=== PATIENT | male | born 1950 | race Caucasian/White ===

== ENCOUNTER 2018-10-15 00:45 | Emergency (ER) | payer MEDICARE, OTHER, MEDICAID ==
[2018-10-15] MEDS ORDERED: Sodium Chloride 0.9% 10 ML Syringe FLUSH PRN (01:02)
[2018-10-15] MEDS ORDERED: Morphine 2 MG/ML Syringe IVPUSH ONE (01:23)
--- NOTE | 2018-10-15 01:47 | EDM.PDOC ---
ED HPI GENERAL MEDICAL PROBLEM - General Chief Complaint: General Stated Complaint: Fever, LLE Pain Time Seen by Provider: 10/15/18 01:00 Source of Information: Reports: Patient History Limitations: Reports: No Limitations - History of Present Illness INITIAL COMMENTS - FREE TEXT/NARRATIVE: Patient is a 67-year-old gentleman who presents to the ER via ambulance from the [facility] at this time patient is seen with severe pain in left extremity also with long-standing history of cyanosis patient has had multiple taps secondary to ascites he appears alert and oriented to time and place states that he fell a few days ago and since has been hurting pain is about 8 out of 10 at its worse he currently has a low temperature 99.6 Onset: Today Duration: Hour(s):, Getting Worse Location: Reports: Generalized Quality: Reports: Ache, Throbbing Severity: Severe Improves with: Reports: None Worsens with: Reports: Movement Context: Reports: Other (Liver cirrhosis and osteomyelofibrosis) Left Lower Leg Pain Score (Numeric/FACES): 9 abdominal pain Pain Score (Numeric/FACES): 9 - Related Data Allergies Allergy/AdvReac Type Severity Reaction Status Date / Time No Known Drug Allergies Allergy Cannot Verified 09/24/18 11:46 Remember Home Meds: Home Meds Pantoprazole Sodium 40 mg PO ACBREAKFAST 02/14/15 [History] Albuterol [Proair HFA] 2 puff INH Q4H PRN 02/15/15 [History] Albuterol/Ipratropium [DuoNeb 3.0-0.5 MG/3 ML] 3 ml NEB Q4H PRN 08/25/16 [ History] Hydroxyurea [Hydrea] 500 mg PO DAILY 10/25/17 [History] Fluticasone/Salmeterol [Advair 250-50 Diskus] 1 puff INH BID@,20 03/09/18 [ History] Allopurinol [Zyloprim] 300 mg PO DAILY 03/10/18 [History] Ibuprofen [Advil] 200 mg PO DAILY 05/21/18 [History] LORazepam 0.5 mg PO BID@08,20 05/21/18 [History] Furosemide [Lasix] 60 mg PO BID@08,14 08/11/18 [History] Hydrocortisone [Preparation H] 1 applic RECTAL TID PRN 08/11/18 [History] Lactulose 45 ml PO QID@08,12,16,08/11/18 [History] Melatonin 3 mg PO BEDTIME 08/11/18 [History] rOPINIRole HCl [Requip] 0.25 mg PO DAILY@199908/11/18 [History] Menthol/Camphor [Sarna Anti-Itch Lotion] 1 applic TOP BID@,09/15/18 [ History] Albuterol/Ipratropium [DuoNeb 3.0-0.5 MG/3 ML] 3 ml NEB BID@,10/15/18 [ History] Aloe Vera/Sodium Chloride [[place] Saline Nasal Gel] 1 applic NASBOTH ASDIRECTED PRN 10/15/18 [History] Dextran 70/Hypromellose [Artificial Tears] 1 drop EYEBOTH BID@,10/15/18 [ History] Folic Acid 1 mg PO DAILY 10/15/18 [History] Ibuprofen 200 mg PO DAILY PRN 10/15/18 [History] Methyl Salicylate/Menthol [Muscle Rub] 1 applic TOP QID PRN 10/15/18 [History] Ruxolitinib Phosphate [Jakafi] 10 mg PO BID@,10/15/18 [History] Spironolactone [Aldactone] 25 mg PO DAILY 10/15/18 [History] traMADol [Ultram] 50 mg PO BID PRN 10/15/18 [History] Past Medical History HEENT History: Reports: Cataract, Impaired Vision Cardiovascular History: Reports: Hypertension, SOB on Exertion Other Cardiovascular History: THROMBOCYTOPENIA. SYSTOLIC MURMUR Respiratory History: Reports: COPD, SOB, Other (See Below) Other Respiratory History: emphysema Gastrointestinal History: Reports: Cirrhosis, GI Bleed, Other (See Below) Other Gastrointestinal History: ascites, stomach ulcer- had a endoscopy in 2014 and there was no evidence of bleeding at that time Genitourinary History: Reports: Other (See Below) Other Genitourinary History: HISTORY OF SCROTAL MASS Musculoskeletal History: Reports: Arthritis Neurological History: Reports: Headaches, Chronic, Other (See Below) Other Neuro History: etoh use Psychiatric History: Reports: Addiction, Other (See Below) Other Psychiatric History: alcohol and nicotine Endocrine/Metabolic History: Reports: Obesity/BMI 30+ Hematologic History: Reports: Anemia, Other (See Below) Other Hematologic History: thrombocytopenia Dermatologic History: Reports: Other (See Below) Other Dermatologic History: multiple scratched open area on chest, back and liam arms - Infectious Disease History Infectious Disease History: Reports: Chicken Pox, Measles, Other (See Below) Other Infectious Disease History: non infectious hepatitis - Past Surgical History HEENT Surgical History: Reports: Cataract Surgery, Naso-Sinus Surgery GI Surgical History: Reports: Hernia, Abdominal, Hernia, Inguinal, Hernia Repair /Other Endocrine Surgical History: Reports: None Social & Family History - Family History Family Medical History: Noncontributory Cardiac: Reports: Heart Failure - Caffeine Use Caffeine Use: Reports: Coffee Other Caffeine Use: coke and powerade - Living Situation & Occupation Living situation: Reports: Single Occupation: Retired ED ROS GENERAL - Review of Systems Review Of Systems: See Below Constitutional: Reports: Fever, Weakness HEENT: Reports: No Symptoms Respiratory: Reports: Shortness of Breath Cardiovascular: Reports: Blood Pressure Problem, Edema Endocrine: Reports: No Symptoms GI/Abdominal: Reports: Abdominal Pain, Distension (Secondary to ascites) : Reports: No Symptoms Musculoskeletal: Reports: Leg Pain Skin: Reports: Jaundice, Bruising, Erythema Neurological: Reports: Weakness Psychiatric: Reports: No Symptoms Hematologic/Lymphatic: Reports: Other (Leukocytosis) Immunologic: Reports: No Symptoms ED EXAM, GENERAL - Physical Exam Exam: See Below Exam Limited By: Physical Impairment General Appearance: Alert, Moderate Distress (Left leg pain) Ears: Normal External Exam, Normal Canal, Hearing Grossly Normal, Normal TMs Nose: Normal Inspection, Normal Mucosa, No Blood Throat/Mouth: Other (Poor oral hygiene) Head: Atraumatic, Normocephalic Neck: Normal Inspection, Supple, Non-Tender, Full Range of Motion Respiratory/Chest: No Respiratory Distress, Lungs Clear, Decreased Breath Sounds , Prolonged Expiration Cardiovascular: Regular Rate, Rhythm, Systolic Murmur (106 systolic murmur heard best left intercostal space). No: No Edema GI/Abdominal: Distended, Tender, Other (Ascites) (Male) Exam: Deferred Rectal (Males) Exam: Deferred Back Exam: Decreased Range of Motion Extremities: Other (Bilateral lower extremity edema with ecchymosis in the left thigh inner aspect and below the left patella) Course - Vital Signs Last Recorded V/S: Last Vital Signs Temp 99.6 F 10/15/18 00:45 Pulse 95 10/15/18 02:30 Resp 17 10/15/18 02:30 BP 116/60 10/15/18 02:30 Pulse Ox 99 10/15/18 02:30 - Orders/Labs/Meds Orders: Active Orders 24 hr Category Date Time Status EKG Documentation Completion [RC] ASDIRECTED Care 10/15/18 02:47 Active Femur Min 2V Lt [CR] Stat Exams 10/15/18 01:14 Taken Hip Min 2V or 3V Lt [CR] Stat Exams 10/15/18 01:14 Taken CULTURE BLOOD [BC] Stat Lab 10/15/18 01:10 Received CULTURE BLOOD [BC] Stat Lab 10/15/18 01:30 Received Blood Culture x2 Reflex Set [OM.PC] Stat Oth 10/15/18 00:57 Ordered Saline Lock Insert [OM.PC] Stat Oth 10/15/18 01:02 Ordered Labs: Laboratory Tests 10/15/18 10/15/18 10/15/18 Range/Units 01:10 01:10 01:10 WBC 43.6 H* (4.0-10.2) K/uL RBC 2.63 L (4.33-5.41) M/uL Hgb 7.7 L (13.1-16.8) g/dL Hct 24.6 L* (39.0-49.0) % MCV 93.5 (84.0-98.0) fL MCH 29.3 (28.2-33.3) pg MCHC 31.3 L (31.7-36.0) g/dL RDW 18.6 H (11.2-14.1) % Plt Count 356 H D (150-350) K/uL Add Manual Diff Yes Neutrophils % (Manual) 59 Band Neutrophils % 22 Lymphocytes % (Manual) 9 Monocytes % (Manual) 5 Metamyelocytes % 3 Myelocytes % 2 Immature Gran # 2.1800 Absolute Neutrophils 35.3160 Lymphocytes # (Manual) 3.9240 Monocytes # (Manual) 2.1800 PT (9.5-12.0) SEC INR APTT 38.5 H (21.0-31.3) SEC D-Dimer, Quantitative (0-400) ng/mL Sodium 138 (136-145) mmol/L Potassium 4.8 (3.5-5.1) mmol/L Chloride 103 (98-107) mmol/L Carbon Dioxide 23.3 (21.0-32.0) mmol/L BUN 42 H (7-18) mg/dL Creatinine 1.52 H (0.51-1.17) mg/dL Est Cr Clr Drug Dosing 45.87 mL/min Estimated GFR (MDRD) 46 mL/min Glucose 105 (74-106) mg/dL Lactic Acid (0.4-2.0) mmol/L Calcium 7.6 L (8.5-10.1) mg/dL Total Bilirubin 0.5 (0.2-1.0) mg/dL AST 52 H (15-37) U/L ALT 35 (12-78) U/L Alkaline Phosphatase 1039 H (46-116) IU/L Total Protein 5.4 L (6.4-8.2) g/dL Albumin 2.1 L (3.4-5.0) g/dL 10/15/18 10/15/18 10/15/18 Range/Units 01:10 01:10 01:10 WBC (4.0-10.2) K/uL RBC (4.33-5.41) M/uL Hgb (13.1-16.8) g/dL Hct (39.0-49.0) % MCV (84.0-98.0) fL MCH (28.2-33.3) pg MCHC (31.7-36.0) g/dL RDW (11.2-14.1) % Plt Count (150-350) K/uL Add Manual Diff Neutrophils % (Manual) Band Neutrophils % Lymphocytes % (Manual) Monocytes % (Manual) Metamyelocytes % Myelocytes % Immature Gran # Absolute Neutrophils Lymphocytes # (Manual) Monocytes # (Manual) PT 13.7 H (9.5-12.0) SEC INR 1.3 APTT (21.0-31.3) SEC D-Dimer, Quantitative 1270 H (0-400) ng/mL Sodium (136-145) mmol/L Potassium (3.5-5.1) mmol/L Chloride (98-107) mmol/L Carbon Dioxide (21.0-32.0) mmol/L BUN (7-18) mg/dL Creatinine (0.51-1.17) mg/dL Est Cr Clr Drug Dosing mL/min Estimated GFR (MDRD) mL/min Glucose (74-106) mg/dL Lactic Acid 1.0 (0.4-2.0) mmol/L Calcium (8.5-10.1) mg/dL Total Bilirubin (0.2-1.0) mg/dL AST (15-37) U/L ALT (12-78) U/L Alkaline Phosphatase (46-116) IU/L Total Protein (6.4-8.2) g/dL Albumin (3.4-5.0) g/dL Meds: Medications Discontinued Medications Generic Name Dose Route Start Last Admin Trade Name Freq PRN Reason Stop Dose Admin Iopamidol Confirm 10/15/18 02:37 10/15/18 04:00 Isovue-370 (76%) Administered 10/15/18 02:38 Not Given Dose 100 ml .ROUTE .STK-MED ONE Morphine Sulfate 1 mg 10/15/18 01:23 10/15/18 01:26 Morphine IVPUSH 10/15/18 01:24 1 mg ONETIME ONE Administration Sodium Chloride 10 ml 10/15/18 01:02 10/15/18 01:27 Saline Flush FLUSH 10 ml ASDIRECTED PRN Administration Keep Vein Open Departure - Departure Time of Disposition: 03:40 Disposition: DC/Tfer to [facility] 02 Clinical Impression: Osteomyelofibrosis - Discharge Information Referrals: Sheets-Alley Gagnon MD [Primary Care Provider] - Forms: ED Department Discharge - Problem List & Annotations (1) Osteomyelofibrosis SNOMED Code(s): 470829516 Code(s): D47.4 - OSTEOMYELOFIBROSIS Status: Acute Annotation/Comment:: Patient workup to include lower extremity Doppler studies and possible VQ scan for PE secondary elevated d-dimer's will transfer to [place] for workup (2) Ascites SNOMED Code(s): 607935426 Code(s): R18.8 - OTHER ASCITES Status: Chronic Annotation/Comment:: Patient will need abdominal ultrasound with possible needle guided paracenteses (3) Anemia SNOMED Code(s): 741173342 Code(s): D64.9 - ANEMIA, UNSPECIFIED Status: Chronic Annotation/Comment: : 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 leukocytosis Qualifiers: Anemia type: unspecified type Qualified Code(s): D64.9 - Anemia, unspecified (4) COPD (chronic obstructive pulmonary disease) SNOMED Code(s): 65063310 Code(s): J44.9 - CHRONIC OBSTRUCTIVE PULMONARY DISEASE, UNSPECIFIED Status : Chronic Annotation/Comment:: Patient has long history of COPD on oxygen at home appears to be well controlled with current medications - Problem List Review Problem List Initiated/Reviewed/Updated: Yes - My Orders Last 24 Hours: My Active Orders 10/15/18 00:57 Blood Culture x2 Reflex Set [OM.PC] Stat 10/15/18 01:02 Saline Lock Insert [OM.PC] Stat 10/15/18 01:10 CULTURE BLOOD [BC] Stat 10/15/18 01:14 Femur Min 2V Lt [CR] Stat Hip Min 2V or 3V Lt [CR] Stat 10/15/18 01:30 CULTURE BLOOD [BC] Stat 10/15/18 02:47 EKG Documentation Completion [RC] ASDIRECTED - Assessment/Plan Last 24 Hours: My Active Orders 10/15/18 00:57 Blood Culture x2 Reflex Set [OM.PC] Stat 10/15/18 01:02 Saline Lock Insert [OM.PC] Stat 10/15/18 01:10 CULTURE BLOOD [BC] Stat 10/15/18 01:14 Femur Min 2V Lt [CR] Stat Hip Min 2V or 3V Lt [CR] Stat 10/15/18 01:30 CULTURE BLOOD [BC] Stat 10/15/18 02:47 EKG Documentation Completion [RC] ASDIRECTED Plan: Patient will be transferred to [facility]
[2018-10-15 02:31] VITALS: BP 116/60
[2018-10-15] MEDS ORDERED: Iopamidol 755 Mg/ML 100 ML Bottle ONE (02:37)
== END 2018-10-15 03:40 ==
LOC: LL.ED 00:45
DX: D47.4 Osteomyelofibrosis (principal); R18.8 Other ascites; D64.9 Anemia, unspecified; J44.9 Chronic obstructive pulmonary disease, unspecified; I10 Essential (primary) hypertension; Z79.891 Long term (current) use of opiate analgesic; Z79.899 Other long term (current) drug therapy; Z98.890 Other specified postprocedural states
CPT/HCPCS: 36415; 73502; 73552; 80053; 83605; 85025; 85379; 85610; 85730; 87040; 93005; 96374; 99285; J2270

== ENCOUNTER 2018-11-15 21:00 | Emergency (ER) | payer MEDICARE, OTHER, MEDICAID ==
--- NOTE | 2018-11-15 21:50 | EDM.PDOC ---
ED HPI GENERAL MEDICAL PROBLEM - General Chief Complaint: General Stated Complaint: ascites, increased weight Time Seen by Provider: 11/15/18 21:10 Source of Information: Reports: Family History Limitations: Reports: No Limitations - History of Present Illness INITIAL COMMENTS - FREE TEXT/NARRATIVE: Patient is a 67-year-old with history of liver cirrhosis and alcohol abuse was seen in [place] for a peritonealcentesis 3 days ago since that time patient has had increase in abdominal girth increased weight increased difficulty breathing and anasarca of the lower extremities also patient continues draining from the site of procedure. Onset: Gradual Duration: Day(s):, Getting Worse Location: Reports: Chest, Abdomen, Lower Extremity, Left, Lower Extremity, Right Quality: Reports: Ache, Pressure, Sharp Severity: Severe Improves with: Reports: None Worsens with: Reports: Rest Context: Reports: Other (Procedure) Associated Symptoms: Reports: Shortness of Breath, Weakness, Other (Abdominal pain) - Related Data Allergies Allergy/AdvReac Type Severity Reaction Status Date / Time No Known Drug Allergies Allergy Cannot Verified 10/30/18 10:52 Remember Home Meds: Home Meds Pantoprazole Sodium 40 mg PO ACBREAKFAST 02/14/15 [History] Albuterol [Proair HFA] 2 puff INH Q4H PRN 02/15/15 [History] Albuterol/Ipratropium [DuoNeb 3.0-0.5 MG/3 ML] 3 ml NEB Q4H PRN 08/25/16 [ History] Hydroxyurea [Hydrea] 500 mg PO DAILY 10/25/17 [History] Fluticasone/Salmeterol [Advair 250-50 Diskus] 1 puff INH BID@03/09/18 [ History] Allopurinol [Zyloprim] 300 mg PO QAM 03/10/18 [History] LORazepam 0.5 mg PO BID@05/21/18 [History] Furosemide [Lasix] 60 mg PO BID@08/11/18 [History] Hydrocortisone [Preparation H] 1 applic RECTAL TID PRN 08/11/18 [History] Lactulose 30 ml PO BID 08/11/18 [History] rOPINIRole HCl [Requip] 0.25 mg PO DAILY@199908/11/18 [History] Menthol/Camphor [[place] Anti-Itch Lotion] 1 applic TOP BID@,20 09/15/18 [ History] Albuterol/Ipratropium [DuoNeb 3.0-0.5 MG/3 ML] 3 ml NEB BID 10/15/18 [History] Aloe Vera/Sodium Chloride [[place] Saline Nasal Gel] 1 applic NASBOTH ASDIRECTED PRN 10/15/18 [History] Folic Acid 1 mg PO DAILY 10/15/18 [History] Methyl Salicylate/Menthol [Muscle Rub] 1 applic TOP QID PRN 10/15/18 [History] Ruxolitinib Phosphate [Jakafi] 10 mg PO BID@,10/15/18 [History] Spironolactone [Aldactone] 25 mg PO DAILY 10/15/18 [History] Acetaminophen 650 mg PO Q4HR PRN 10/30/18 [History] Ciprofloxacin HCl [Cipro] 500 mg PO QAM 10/30/18 [History] Hydrocortisone [Proctosol-HC] 1 applic RECTAL QID PRN 10/30/18 [History] Indomethacin 25 mg PO BID 10/30/18 [History] Non-Formulary Medication [NF Drug] 1 ea PO TID 10/30/18 [History] Past Medical History HEENT History: Reports: Cataract, Impaired Vision Cardiovascular History: Reports: Hypertension, SOB on Exertion Other Cardiovascular History: THROMBOCYTOPENIA. SYSTOLIC MURMUR Respiratory History: Reports: COPD, SOB, Other (See Below) Other Respiratory History: emphysema Gastrointestinal History: Reports: Cirrhosis, GI Bleed, Other (See Below) Other Gastrointestinal History: ascites, stomach ulcer- had a endoscopy in 2014 and there was no evidence of bleeding at that time Genitourinary History: Reports: Other (See Below) Other Genitourinary History: HISTORY OF SCROTAL MASS Musculoskeletal History: Reports: Arthritis Neurological History: Reports: Headaches, Chronic, Other (See Below) Other Neuro History: etoh use Psychiatric History: Reports: Addiction, Other (See Below) Other Psychiatric History: alcohol and nicotine Endocrine/Metabolic History: Reports: Obesity/BMI 30+ Hematologic History: Reports: Anemia, Other (See Below) Other Hematologic History: thrombocytopenia Dermatologic History: Reports: Other (See Below) Other Dermatologic History: multiple scratched open area on chest, back and liam arms - Infectious Disease History Infectious Disease History: Reports: Chicken Pox, Measles, Other (See Below) Other Infectious Disease History: non infectious hepatitis - Past Surgical History HEENT Surgical History: Reports: Cataract Surgery, Naso-Sinus Surgery GI Surgical History: Reports: Hernia, Abdominal, Hernia, Inguinal, Hernia Repair /Other Endocrine Surgical History: Reports: None Social & Family History - Family History Family Medical History: Noncontributory Cardiac: Reports: Heart Failure - Caffeine Use Caffeine Use: Reports: Coffee Other Caffeine Use: coke and powerade - Living Situation & Occupation Living situation: Reports: Single Occupation: Retired ED ROS GENERAL - Review of Systems Review Of Systems: See Below Constitutional: Reports: Weakness, Weight Gain HEENT: Reports: No Symptoms, Other (Poor dentition and poor oral hygiene) Respiratory: Reports: Shortness of Breath Cardiovascular: Reports: Edema Endocrine: Reports: No Symptoms GI/Abdominal: Reports: Abdominal Pain, Constipation, Distension : Reports: Other ( testicular discomfort) Musculoskeletal: Reports: Leg Pain (Secondary to 1 start of) Neurological: Reports: No Symptoms Psychiatric: Reports: No Symptoms Hematologic/Lymphatic: Reports: Anemia (By history) Immunologic: Reports: No Symptoms ED EXAM, GENERAL - Physical Exam Exam: See Below Exam Limited By: No Limitations General Appearance: Alert, Moderate Distress Ears: Normal External Exam, Normal Canal, Hearing Grossly Normal, Normal TMs Nose: Normal Inspection, Normal Mucosa, No Blood Throat/Mouth: Normal Inspection. No: Normal Teeth Head: Atraumatic, Normocephalic Neck: Normal Inspection, Supple, Non-Tender, Full Range of Motion Respiratory/Chest: Decreased Breath Sounds, Rales (Minimal in the bases) Cardiovascular: Regular Rate, Rhythm, Systolic Murmur GI/Abdominal: Normal Bowel Sounds, Tender, Other (Abdominal distention with ascites). No: No Distention (Male) Exam: No Hernia, Scrotal Swelling (Decrease) Rectal (Males) Exam: Deferred Extremities: Pedal Edema, Other (Bilateral extremity anasarca) Neurological: Alert, Oriented, CN II-XII Intact, Normal Cognition, Normal Gait, Normal Reflexes, No Motor/Sensory Deficits Psychiatric: Normal Affect, Normal Mood Skin Exam: Warm, Dry Lymphatic: No Adenopathy Course - Vital Signs Last Recorded V/S: Last Vital Signs Temp 99.0 F 11/15/18 21:00 Pulse 84 11/15/18 21:00 Resp 20 11/15/18 21:00 BP 133/65 11/15/18 21:00 Pulse Ox 99 11/15/18 21:00 - Orders/Labs/Meds Orders: Active Orders 24 hr Category Date Time Status Chest 2V [CR] Stat Exams 11/15/18 21:16 Taken CULTURE BLOOD [BC] Stat Lab 11/15/18 21:25 Received CULTURE BLOOD [BC] Stat Lab 11/15/18 21:40 Received Levofloxacin/Dextrose 5%-Water [Levaquin in D5W 750 MG/ Med 11/15/18 22:59 Ordered 150 ML] 750 mg Premix Bag 1 bag IV ONETIME Sodium Chloride 0.9% @ 75 MLS/HR(1000ml) Med 11/15/18 23:00 Ordered Sodium Chloride 0.9% [Normal Saline] 1,000 ml IV ASDIRECTED Sodium Chloride 0.9% [Saline Flush] Med 11/15/18 22:38 Ordered 10 ml FLUSH ASDIRECTED PRN Blood Culture x2 Reflex Set [OM.PC] Stat Oth 11/15/18 21:16 Ordered Saline Lock Insert [OM.PC] Stat Oth 11/15/18 22:38 Ordered Medication Orders Sodium Chloride (Normal Saline) 1,000 mls @ 75 mls/hr IV ASDIRECTED ESTER Sodium Chloride (Saline Flush) 10 ml FLUSH ASDIRECTED PRN PRN Reason: Keep Vein Open Labs: Laboratory Tests 11/15/18 11/15/18 11/15/18 Range/Units 21:25 21:25 21:25 WBC 31.1 H (4.0-10.2) K/uL RBC 2.44 L (4.33-5.41) M/uL Hgb 7.5 L (13.1-16.8) g/dL Hct 23.2 L* (39.0-49.0) % MCV 95.1 (84.0-98.0) fL MCH 30.7 (28.2-33.3) pg MCHC 32.3 (31.7-36.0) g/dL RDW 20.1 H (11.2-14.1) % Plt Count 158 (150-350) K/uL Add Manual Diff Yes Neutrophils % (Manual) 67 Band Neutrophils % 17 Lymphocytes % (Manual) 6 Monocytes % (Manual) 10 Absolute Neutrophils 26.1240 Lymphocytes # (Manual) 1.8660 Monocytes # (Manual) 3.1100 Sodium 127 L (136-145) mmol/L Potassium 5.4 H (3.5-5.1) mmol/L Chloride 94 L (98-107) mmol/L Carbon Dioxide 30.7 (21.0-32.0) mmol/L BUN 33 H (7-18) mg/dL Creatinine 1.32 H (0.51-1.17) mg/dL Est Cr Clr Drug Dosing TNP Estimated GFR (MDRD) 54 mL/min Glucose 90 (74-106) mg/dL Lactic Acid 0.5 (0.4-2.0) mmol/L Calcium 7.8 L (8.5-10.1) mg/dL Total Bilirubin 0.4 (0.2-1.0) mg/dL AST 107 H (15-37) U/L ALT 84 H (12-78) U/L Alkaline Phosphatase 1035 H (46-116) IU/L Total Protein 5.7 L (6.4-8.2) g/dL Albumin 2.6 L (3.4-5.0) g/dL Meds: Medications Generic Name Dose Route Start Last Admin Trade Name Freq PRN Reason Stop Dose Admin Sodium Chloride 1,000 mls @ 75 mls/hr 11/15/18 23:00 Normal Saline IV ASDIRECTED ESTER Sodium Chloride 10 ml 11/15/18 22:38 Saline Flush FLUSH ASDIRECTED PRN Keep Vein Open Discontinued Medications Generic Name Dose Route Start Last Admin Trade Name Freq PRN Reason Stop Dose Admin Furosemide 40 mg 11/15/18 22:39 Lasix IVPUSH 11/15/18 22:40 NOW ONE Departure - Departure Time of Disposition: 23:01 Disposition: DC/Tfer to Acute Hospital 02 Preliminary Cause of *Q: Sepsis & Multi System Organ Failure Condition: Fair Clinical Impression: Ascites, COLD, Chronic obstructive lung disease, Peritonitis Anemia Qualifiers: Anemia type: unspecified type Qualified Code(s): D64.9 - Anemia, unspecified - Discharge Information *PRESCRIPTION DRUG MONITORING PROGRAM REVIEWED*: No *COPY OF PRESCRIPTION DRUG MONITORING REPORT IN PATIENT ERICKA: No Referrals: Corinne Benites PA [Primary Care Provider] - Forms: ED Department Discharge Care Plan Goals: Patient will be the transferred to [place] for hospitalization and possible peritonealcentesis as indicated discuss with hospitalist and agreed to accept. - My Orders Last 24 Hours: My Active Orders 11/15/18 21:16 Chest 2V [CR] Stat Blood Culture x2 Reflex Set [OM.PC] Stat 11/15/18 21:25 CULTURE BLOOD [BC] Stat 11/15/18 21:40 CULTURE BLOOD [BC] Stat 11/15/18 22:38 Sodium Chloride 0.9% [Saline Flush] 10 ml FLUSH ASDIRECTED PRN Saline Lock Insert [OM.PC] Stat 11/15/18 22:59 Levofloxacin/Dextrose 5%-Water [Levaquin in D5W 750 MG/150 ML] 750 mg Premix Bag 1 bag IV ONETIME 11/15/18 23:00 Sodium Chloride 0.9% @ 75 MLS/HR(1000ml) Sodium Chloride 0.9% [Normal Saline] 1 ,000 ml IV ASDIRECTED - Assessment/Plan Last 24 Hours: My Active Orders 11/15/18 21:16 Chest 2V [CR] Stat Blood Culture x2 Reflex Set [OM.PC] Stat 11/15/18 21:25 CULTURE BLOOD [BC] Stat 11/15/18 21:40 CULTURE BLOOD [BC] Stat 11/15/18 22:38 Sodium Chloride 0.9% [Saline Flush] 10 ml FLUSH ASDIRECTED PRN Saline Lock Insert [OM.PC] Stat 11/15/18 22:59 Levofloxacin/Dextrose 5%-Water [Levaquin in D5W 750 MG/150 ML] 750 mg Premix Bag 1 bag IV ONETIME 11/15/18 23:00 Sodium Chloride 0.9% @ 75 MLS/HR(1000ml) Sodium Chloride 0.9% [Normal Saline] 1 ,000 ml IV ASDIRECTED
[2018-11-15 22:02] LABS: CHLORIDE,CL 94 mmol/L (98-107); SODIUM,NA 127 mmol/L (136-145)
[2018-11-15 22:08] VITALS: BP 133/65
[2018-11-15] MEDS ORDERED: Sodium Chloride 0.9% 10 ML Syringe FLUSH PRN (22:38)
[2018-11-15] MEDS ORDERED: Furosemide 40 MG/4 ML VIAL IVPUSH ONE (22:39)
[2018-11-15] MEDS ORDERED: Levofloxacin/Dextrose 5%-Water 750 MG in Premix Bag 1 BAG IV ONE (22:59)
[2018-11-15] MEDS ORDERED: Sodium Chloride 0.9% 1,000 ML IV SCH (23:00)
== END 2018-11-15 23:45 ==
LOC: LL.ED 21:00
DX: J44.9 Chronic obstructive pulmonary disease, unspecified (principal); R18.8 Other ascites; K65.9 Peritonitis, unspecified; D64.9 Anemia, unspecified; I10 Essential (primary) hypertension; E66.9 Obesity, unspecified; J00 Acute nasopharyngitis [common cold]; Z79.899 Other long term (current) drug therapy
CPT/HCPCS: 36415; 71046; 80053; 83605; 85025; 87040; 96365; 96375; 99284; 99285; J1940; J1956; J7030